=== PATIENT | female | born 1985 | race Caucasian/White ===

== ENCOUNTER 2023-07-23 08:44 | Outpatient (AMB) | payer OTHER, SELFPAY ==
[2023-07-23 09:50] VITALS: BP 120/68; PULSE 78; TEMP 36.5; O2SAT 97; BMI 23.9
--- NOTE | 2023-07-23 09:50 | AM.OFFWIN_ITS ---
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 Patient's last normal menstrual period was approximately 1 month ago she states her menses is due in approximately 3 days. She describes having a localized in-grown hair on her left breast at the end of last week. She denies Having any fevers, chills, nipple discharge or injury to her anterior chest wall. [facility] Social History Patient Tobacco Use Status: Never used Tobacco Review of Systems Const All systems reviewed & are unremarkable except as noted in HPI and below Denies chills, Denies fever(s) and Denies night sweats Card Reports as per HPI Resp Reports as per HPI Skin/Breast Reports system reviewed and no additional complaints, except as documented, Reports breast pain (left) and Reports changing lesions Physical Exam Vital Signs: Last Vital Signs Temp 97.7 F 07/23/23 09:50 Pulse 78 07/23/23 09:50 BP 120/68 07/23/23 09:50 Pulse Ox 97 07/23/23 09:50 Oxygen Delivery Method Room Air 07/23/23 09:50 BMI result Body Mass Index 23.9 Const General: cooperative, healthy appearing, comfortable, no acute distress and well developed Nutritional Appearance: average body habitus Orientation/consciousness: patient oriented x3 Limitations: no limitations Chest Breast/axilla inspection: inspection of breasts abnormal (1cm round, rubbery, fixed, mildly tender lesion palpated 1 o'clock L breast) and Other (lesion at border of aereola, no nipple discharge, no erythema) Breast/axilla palpation: axillary lymphadenopathy not noted Resp Effort & Inspection: normal respiratory effort Auscultation: clear to auscultation bilaterally Cardio Rate: regular rate Rhythm: regular rhythm Skin Lesions: lesion noted (two mildly erythematous papules overlying aforementioned L. breast lesion) Neuro General: patient oriented x3 Psych Appearance: grossly normal Mental Status: mental status grossly normal Insight: Good insight present (Psych) Judgement: Good judgement present (Psych) Assessment & Plan Assessment & Plan (1) Breast lump on left side at 1 o'clock position: Code(s): N63.21 - Unspecified lump in the left breast, upper outer quadrant Plan No antibiotic therapy is warranted at this time, warm compresses will be applied 3 times daily and patient will follow-up with her primary care provider next Thursday for a reexamination of this breast lesion. Coding Level of Care Code New Pt Level 3 (39090) Diagnoses Breast lump on left side at 1 o'clock position N63.21 Time Spent (min) 20
== END 2023-07-23 10:50 | disposition home or self-care (01) ==
PROVIDERS: Visit Provider Physician Assistant
DX: N63.21 Unspecified lump in the left breast, upper outer quadrant (principal)
CPT/HCPCS: 99203